=== PATIENT | female | born 1935 | race Caucasian/White ===

== ENCOUNTER 2017-03-10 11:41 | Emergency (ER) | payer MEDICARE, OTHER ==
[2017-03-10 11:49] VITALS: BP 138/82
[2017-03-10] MEDS ORDERED: Morphine Sulfate 4 mg/mL 1mL Syr ONE (11:59)
--- NOTE | 2017-03-10 12:12 | ED Physician Chart ---
Chief Complaint/HPI - Patient Information Date Seen:: 03/10/17 Time Seen:: 12:10 Chief Complaint:: FALL WITH LT SHOULDER INJURY History of Present Illness:: This 81-year-old female was in a thrift store when she lost her balance and fell to the ground. The onset was just prior to admission and she was brought to the emergency department by ambulance. She landed it was on her left side and it caused her left shoulder to dislocate. He has a history of chronic pain in the left shoulder region with episodes of dislocation. The patient did not strike her head and there was no loss of consciousness. Patient denies having any neck pain. On a scale of 0-10 the patient rated her pain in the left shoulder as a 10 over 10. Movement was an exacerbating factor. Remaining still decrease the level of pain. The patient denies any associated other injuries. Allergies:: Allergies Allergy/AdvReac Type Severity Reaction Status Date / Time diclofenac AdvReac Verified 03/10/17 11:48 Vitals:: Vital Signs - 8 hr 03/10/17 03/10/17 11:48 11:55 Temp 97.8 F HR 100 RR 16 BP 138/82 138/82 O2 Sat % 96 Historian:: Patient Review of Systems - Review of Systems General/Constitutional: No fever, No chills, No weakness, No diaphoresis, No edema Skin: No skin lesions, No rash Head: No headache, No light-headedness Eyes: No loss of vision, No diplopia ENT: No earache, No sore throat, No tinnitus Neck: No neck pain, No swelling, No mass noted Cardio Vascular: No chest pain, No palpitations, No edema Pulmonary: No SOB, No cough GI: No nausea, No vomiting, No diarrhea, No pain G/U: No dysuria, No frequency Musculoskeletal: Bone or joint pain (pain in the left shoulder. Vision also has not obvious deformity in the same region.), No back pain Endocrine: No polyuria, No polydipsia Psychiatric: No prior psych history, No depression, No suicidal ideation Hematopoietic: No bruising, No lymphadenopathy Allergic/Immuno: No urticaria, No angioedema Neurological: No syncope, No focal symptoms, No weakness, No paresthesia, No seizure, No confusion, No vertigo Past Medical History - Past Medical History Past Medical History: HTN, DM, Dyslipidemia Social History: Non Smoker, No Alcohol, No Drug Use Employment:: Lives with her family. Family Medical History - Family Member Daughter Ethnicity: Hx Family Cancer: No Hx Family Congestive Heart Failure: No Hx Family Hypertension: No Hx Family Diabetes: No Hx Family Seizures: No Hx Family HIV: No Hx Family COPD: No Hx Family Tuberculosis: No Physical Exam - Physical Examination General/Constitutional: Awake, Well-developed, well-nourished, Alert Other Gen/Cons comments:: Bzni-iu-cimawhte distress with any attempt to move the left shoulder. Head: Atraumatic Other Head comments:: No visible or palpable evidence of head trauma. Eyes: Lids, conjuctiva normal, PERRL, EOMI Skin: No rash, No skin lesions, No ecchymosis Other ENMT comments:: Patient has dentures. Exostosis noted on the hard palate. Neck: Full ROM w/o pain, No JVD, No nuchal rigidity, No stridor Respiratory: Nl effort/Exclusion, Clear to Auscultation, No Wheeze/Rhonchi/Rales Cardio Vascular: RRR, No murmur, gallop, rubs Other Cardio Vascular comments:: Adequate pulses in all 4 extremities. GI: No tenderness/rebounding/guarding, No organomegaly, Normal BS's, Nondistended, No McBurney tenderness : No CVA tenderness Extremities: No edema Other Extremities comments:: The patient has a deformity of the left shoulder consistent with anterior dislocation. There is tenderness on palpation over the glenoid process and the proximal humerus. Other Neuro/Psych comments:: Patient is alert. Oriented to name and place. Misc: Normal back, No paraspinal tenderness Labs/Radiology/EKG Results - Radiology Results Results: A two-view study of the left shoulder clearly showed anterior dislocation. There were no associated fractures. No soft tissue foreign bodies. The post reduction left shoulder films showed good realignment of the joint and again no associated fractures are soft-tissue foreign bodies. Assessment - Assessment General Assessment: CASE SUMMARY: This 81-year-old female had a mechanical fall in the store I'll in which she landed on her left shoulder. 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 On physical examination and history there were no other associated injuries. The patient's initial pain which was 10 over 10 was addressed with IV Zofran and morphine sulfate. The patient received procedural sedation of 0.5 mg Ativan and 10 mg of etomidate. When the patient was adequately sedated, the left shoulder was reduced with simple traction. Upon coming out of the procedural sedation the patient had an episode of emesis which may have been related to the morphine she received. She continued to feel lightheaded and was treated with a leader of normal saline and continued observation until she could stand and walk without difficulty. She was discharged with family after a shoulder immobilizer was fitted. Discharged in stable condition. Advice to follow up with her primary care physician in the coming week or two to see if she can come out of the shoulder immobilizer. She was furthered by return to the emergency department for severe pain, difficulty ambulating for any other new complaints. MDM FOR MECHANICAL FALL AND LT SHOULDER INJURY: NOT C-Spine injury based on history and exam. Negative NEXUS Criteria after the reduction was completed. NOT Humeral Shaft fracture based on x-ray studies. NOT Glenoid fracture based on x-ray studies. NOT Significant head injury based on the patient's history and physical examination. ED Septic Shock - . Is Septic Shock (SBP<90, OR Lactate>4 mmol\L) present?: No - <6hrs of presentation: Vital Signs: Vital Signs - 8 hr 03/10/17 03/10/17 11:48 11:55 Temp 97.8 F HR 100 RR 16 BP 138/82 138/82 O2 Sat % 96 Reassessment (Disposition) - Reassessment Reassessment Condition:: Improved - Diagnosis Diagnosis:: DIAGNOSIS: 1) MECHANICAL FALL 2) ANTERIOR DISLOCATION LEFT SHOULDER 3) HYPERTENSION 4) DIABETES WEAR THE SHOULDER IMMOBILIZE UNTIL INSTRUCTED OTHERWISE BY YOUR ON DOCTOR. RETURN TO THE ER IF YOUR SYMPTOMS WORSEN. USE IBUPROFEN FOR MILD TO MODERATE PAIN. - Aftercare/Follow up Instructions Aftercare/Follow-Up Instructions:: Counseled pt regarding lab results/diagnosis & need follow up, Refer to Discharge Instructions, Counseled pt & family regarding lab results/diagnosis & need follow up - Patient Disposition Discharge/Transfer:: Home ED Discharge Plan - Patient Disposition Admit/Discharge/Transfer: PT DISCHARGED HOME Condition at Disposition: Improved Instructions: Shoulder Dislocation, Fall Prevention and Home Safety Accepting Physician: , Primary [Other] - 1-3 Days
[2017-03-10] MEDS ORDERED: Sodium Chloride 0.9% 1,000 ML IV ONE (15:27)
--- NOTE | 2017-03-11 09:22 | Diagnostic Imaging Report ---
History: Postreduction Findings: Compared to earlier film the left humeral head has been successfully With the glenoid. There is flattening of the articular surface humeral head Impression successful reduction of dislocated left shoulder. 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
--- NOTE | 2017-03-11 09:23 | Diagnostic Imaging Report ---
History: Trauma pain Findings: Anterior dislocation of the humeral head. No bony fractures are identified. Impression: Anterior dislocation of the humeral head.
== END 2017-03-10 17:20 | disposition home or self-care (01) ==
LOC: ER 11:41
DX: S43.085A Other dislocation of left shoulder joint, initial encounter (principal); E11.9 Type 2 diabetes mellitus without complications; I10 Essential (primary) hypertension; E78.5 Hyperlipidemia, unspecified; Z88.8 Allergy status to other drugs, medicaments and biological substances; W01.0XXA Fall on same level from slipping, tripping and stumbling without subsequent striking against object, initial encounter; Y93.89 Activity, other specified; Y92.89 Other specified places as the place of occurrence of the external cause; Y99.8 Other external cause status
CPT/HCPCS: 99284; 96374; 96375; 73030 ×2; J2060; J2405 ×2; 90799; J7030; Z7502